=== PATIENT | female | born 1940 ===

== ENCOUNTER 2018-05-10 21:00 | Emergency (ER) | payer MEDICAID, OTHER ==
[2018-05-10 21:18] VITALS: BMI 20.5
--- NOTE | 2018-05-10 21:27 | ED PDOC ---
Arrival/HPI - General Chief Complaint: Abnormal Skin Integrity Time Seen by Provider: 05/10/18 21:14 Historian: Patient - History of Present Illness Narrative History of Present Illness (Text): 05/10/18 21:27 A 78 year old female with no significant past medical history presents to the emergency department complaining of an allergic reactions. Patient reports noticing a rash earlier today and has been constantly itching. Patient notes she has applied anti-fungal medicine to rashes with no relief. Patient denies any fever, chills, chest pain, shortness of breath, neck pain, headache, or any other complaints. No PMD Time/Duration: 4-6 hours Symptom Onset: Gradual Symptom Course: Unchanged Activities at Onset: Light Context: Home Past Medical History - Travel History Have you recently traveled outside [place] w/in the past 3 mons?: Yes - Infectious Disease Hx of Infectious Diseases: None - Cardiac Hx Cardiac Disorders: No - Pulmonary Hx Respiratory Disorders: No - Neurological Hx Neurological Disorder: No - HEENT Hx HEENT Disorder: No - Renal Hx Renal Disorder: No - Endocrine/Metabolic Hx Endocrine Disorders: No - Hematological/Oncological Hx Cancer: Yes (pelvic ca) - Integumentary Hx Dermatological Disorder: No - Musculoskeletal/Rheumatological Hx Musculoskeletal Disorders: No - Gastrointestinal Hx Gastrointestinal Disorders: No - Genitourinary/Gynecological Hx Genitourinary Disorders: Yes Other/Comment: uturine cancer - Psychiatric Hx Psychophysiologic Disorder: No Hx Substance Use: No - Surgical History Other/Comment: uterine cancer - Anesthesia Hx Anesthesia: Yes Hx Anesthesia Reactions: No Hx Malignant Hyperthermia: No Family/Social History - Physician Review Nursing Documentation Reviewed: Yes Family/Social History: Unknown Family HX Smoking Status: Never Smoked Hx Alcohol Use: No Hx Substance Use: No Allergies/Home Meds Allergies/Adverse Reactions: Allergies No Known Allergies Allergy (Verified 08/21/16 10:19) Review of Systems - Physician Review All systems were reviewed & negative as marked: Yes - Review of Systems Constitutional: Normal. absent: Fevers, Night Sweats Eyes: Normal ENT: Normal Respiratory: absent: SOB Cardiovascular: absent: Chest Pain Musculoskeletal: absent: Neck Pain Skin: Rash (+both arms and chest) Neurological: Normal. absent: Headache Physical Exam Vital Signs Reviewed: Yes Vital Signs Temp Pulse Resp BP Pulse Ox 05/10/18 23:03 98.7 F 89 18 111/73 99 05/10/18 21:37 97.8 F 70 18 118/72 97 Temperature: Afebrile Blood Pressure: Normal Pulse: Regular Respiratory Rate: Normal Appearance: Positive for: Well-Appearing, Non-Toxic, Comfortable Pain Distress: None Mental Status: Positive for: Alert and Oriented X 3 - Systems Exam Head: Present: Atraumatic, Normocephalic Pupils: Present: PERRL Extroacular Muscles: Present: EOMI Conjunctiva: Present: Normal Mouth: Present: Moist Mucous Membranes Neck: Present: Normal Range of Motion Respiratory/Chest: Present: Clear to Auscultation, Good Air Exchange. No: Respiratory Distress, Accessory Muscle Use Cardiovascular: Present: Regular Rate and Rhythm, Normal S1, S2. No: Murmurs Abdomen: No: Tenderness, Distention, Peritoneal Signs Back: Present: Normal Inspection Upper Extremity: No: Normal Inspection, Cyanosis, Edema Lower Extremity: Present: Normal Inspection. No: Edema Neurological: Present: GCS=15, CN II-XII Intact, Speech Normal Skin: Present: Rashes (Hives on both arms and chest). No: Warm, Dry, Normal Color Psychiatric: Present: Alert, Oriented x 3, Normal Insight, Normal Concentration Medical Decision Making ED Course and Treatment: 05/10/18 21:27 Impression: A 78 year old female presenting to the Emergency department of an allergic reaction. Plan: -- Benadryl -- Pepcid -- predniSONE Tab -- Reassess and disposition Progress Notes: 05/10/18 23:27 sp meds symptoms improving. lungs cta. adivse outpt fu. - Medication Orders Current Medication Orders: Discontinued Medications Diphenhydramine HCl (Benadryl) 50 mg PO STAT STA Stop: 05/10/18 21:23 Last Admin: 05/10/18 22:12 Dose: 50 mg Famotidine (Pepcid) 20 mg PO STAT STA Stop: 05/10/18 21:24 Last Admin: 05/10/18 22:12 Dose: 20 mg Prednisone (Prednisone Tab) 50 mg PO STAT STA Stop: 05/10/18 21:23 Last Admin: 05/10/18 22:12 Dose: 50 mg - Scribe Statement The provider has reviewed the documentation as recorded by the Michelle Nina All medical record entries made by the Scribe were at my direction and personally dictated by me. I have reviewed the chart and agree that the record accurately reflects my personal performance of the history, physical exam, medical decision making, and the department course for this patient. I have also personally directed, reviewed, and agree with the discharge instructions and disposition. Disposition/Present on Arrival - Present on Arrival Any Indicators Present on Arrival: No History of DVT/PE: No History of Uncontrolled Diabetes: No Urinary Catheter: No History of Decub. Ulcer: No History Surgical Site Infection Following: None - Disposition Have Diagnosis and Disposition been Completed?: Yes Diagnosis: Allergic reaction Disposition: HOME/ ROUTINE Disposition Time: 23:00 Condition: STABLE Discharge Instructions (ExitCare): Allergy Testing, Hives (DC) Additional Instructions: please follow up with your doctor/clinic. you may need further testing as an outpatient. return to er with worsening symptoms or concerns. discontinue the fungal cream. Prescriptions: DiphenhydrAMINE [Benadryl] 25 mg PO Q4 PRN #20 cap PRN Reason: Itching / Pruritus Famotidine [Pepcid] 20 mg PO DAILY #5 tab Prednisone 50 mg PO DAILY #4 tablet Referrals: [facility] [Outside] - Follow up with primary [facility] [Outside] - Follow up with primary Forms: [employer] (Bhutanese)
[2018-05-10 21:38] VITALS: RESP 18
[2018-05-10 23:01] VITALS: BP 111/73; PULSE 89; TEMP 98.7; O2SAT 99
== END 2018-05-10 23:03 | disposition home or self-care (01) ==
LOC: ED 21:00
DX: T78.40XA Allergy, unspecified, initial encounter (principal); X58.XXXA Exposure to other specified factors, initial encounter